=== PATIENT | male | born 1945 | race Caucasian/White ===

== ENCOUNTER → 2019-09-19 | Emergency (ER) | payer BC ==
[~2019-09-19] VITALS: Ht 170.2 cm; Wt 87.5 kg
[~2019-09-19] MED LIST: TADA5TAB2 PO
--- NOTE | 2019-09-19 16:16 | NUR ---
UNABLE TO URINATE SINCE MIDNIGHT AFTER HAVING INTERCOURSE WITH GIRLFIEND ADMIT TO USING CIALIS. PT AAOX4, VSS. RR EVEN & UNLABORED. DENIES ANY OTHER DISCOMFORT. PT SEEN & EVAL'D BY DR. FISH. LOCK CATHETER INSERTED PER ERMD ORDER, PT JANET WELL & HAD INSTANT RELIEF. WILL CONT TO MONITOR.
[2019-09-19 16:18] LABS: APPEARANCE,URINE Clear (CLEAR); BILIRUBIN,URINE Negative (NEGATIVE); BLOOD, URINE Moderate Ery/uL (NEGATIVE); COLOR,URINE Yellow (YELLOW); KETONES,URINE Trace (NEGATIVE); LEUKOCYTE ESTERASE ,URINE Negative (NEGATIVE); NITRITE, URINE Negative (NEGATIVE); PH,URINE 5.5 (5.0-8.0); PROTEIN,URINE Negative (NEGATIVE); UGLUCOSE Negative (NEGATIVE); UROBILINOGEN,URINE 0.2 EU/dL (0.2)
[2019-09-19 17:38] LABS: BACTERIA,URINE Few /HPF (None Seen); SQUAMOUS EPITHELIAL CELL,UR Few /HPF (None Seen); WBC,URINE 0-2 /HPF (0-3)
== END | disposition home or self-care (01) ==
LOC: ER 15:21
DX: R33.9 Retention of urine, unspecified (principal); I48.91 Unspecified atrial fibrillation; Z60.2 Problems related to living alone
CPT/HCPCS: 81000-TC; 87086-TC

== ENCOUNTER 2019-09-21 13:38 | Emergency (ER) | payer BC ==
[~2019-09-21] VITALS: Ht 170.2 cm; Wt 87.5 kg
--- NOTE | 2019-09-21 14:00 | NUR ---
PATIENT CAME IN TO THE ER DUE TO CATHETER REMOVAL, INSERTED 2 DAYS AGO, PER MD TO COME BACK IN ER TO REMOVE CATH. ON SANDERS AIR, BREATHING EVENLY AND UNLABORED. KEPT COMFORTABLE. WILL CONTINUE TO MONITOR ACCORDINGLY.
[2019-09-21 15:29] VITALS: BP 129/81
--- NOTE | 2019-09-21 15:30 | NUR ---
Patient discharged to home in stable condition. Written and verbal after care instructions given. Patient verbalizes understanding of instruction.
== END 2019-09-21 15:30 | disposition home or self-care (01) ==
LOC: ER 13:48
DX: Z46.6 Encounter for fitting and adjustment of urinary device (principal); R33.9 Retention of urine, unspecified; Z60.2 Problems related to living alone; Z79.899 Other long term (current) drug therapy